=== PATIENT | female | born 1990 | race American Indian/Alaskan Native ===

== ENCOUNTER 2017-05-16 17:57 | Emergency (ER) | payer SELFPAY ==
[2017-05-16 18:55] VITALS: BP 126/98
[2017-05-16] MEDS ORDERED: methylPREDNISolone Sodium Succinate 125 MG/2 ML SDV IM ONE (18:55)
--- NOTE | 2017-05-16 18:59 | EDM.PDOC ---
[id number]: RASH,ALLERGIC, [id number] Time Seen by Provider: 05/16/17 18:55 Source of Information: Reports: Patient History Limitations: Reports: No Limitations - History of Present Illness INITIAL COMMENTS - FREE TEXT/NARRATIVE: 2 days h/o itchy rash taken nothing and not getting better. not sure if it's detergents of what. - Related Data Allergies Allergy/AdvReac Type Severity Reaction Status Date / Time No Known Allergies Allergy Verified 05/16/17 18:55 Home Meds: Home Meds Acetaminophen/oxyCODONE [Percocet 325-5 MG] 1 - 2 tab PO Q6H PRN #20 tablet 08/18 [Rx] Past Medical History - Past Health History Medical/Surgical History: Denies Medical/Surgical History [employer] History: Reports: Endocrine/Metabolic History: Reports: Other (See Below) Other Endocrine/Metabolic History: had an abnormal TSH with previous in 2013 is not on anything for it at this time - Infectious Disease History Infectious Disease History: Reports: Hepatitis C - Past Surgical History Female Surgical History: Reports: Section Social & Family History - Family History Family Medical History: Noncontributory - Tobacco Use Smoking Status *Q: Current Every Day Smoker Years of Tobacco use: 3 Packs/Tins Daily: 1 Used Tobacco, but Quit: No Second Hand Smoke Exposure: Yes - Caffeine Use Caffeine Use: Reports: Coffee, Soda, Tea - Alcohol Use Days Per Week of Alcohol Use: 0 - Recreational Drug Use Recreational Drug Use: No Drug Use in Last 12 Months: Yes Recreational Drug Type: Reports: Oxycodone ED ROS ALLERGIC REACTION - Review of Systems Review Of Systems: ROS reveals no pertinent complaints other than HPI. ED EXAM GENERAL NO PERIP PULSE - Physical Exam Exam: See Below Exam Limited By: No Limitations General Appearance: Alert, WD/WN, Mild Distress, Other (general itch) Ears: Hearing Grossly Normal Throat/Mouth: Normal Voice, No Airway Compromise Head: Atraumatic Neck: Non-Tender, Full Range of Motion Respiratory/Chest: No Respiratory Distress, No Accessory Muscle Use Cardiovascular: Regular Rate, Rhythm GI/Abdominal: Soft, Non-Tender Neurological: Alert, Oriented, Normal Cognition, Normal Gait, No Motor/Sensory Deficits Psychiatric: Normal Affect, Normal Mood Skin Exam: Rash, Other Lymphatic: No Adenopathy Course - Vital Signs Last Recorded V/S: Last Vital Signs Temp 37.0 C 05/16/17 18:45 Pulse 90 05/16/17 18:45 Resp 17 05/16/17 18:45 BP 126/98 H 05/16/17 18:45 Pulse Ox 100 05/16/17 18:45 - Orders/Labs/Meds Meds: Medications Discontinued Medications Generic Name Dose Route Start Last Admin Trade Name Gideon PRN Reason Stop Dose Admin Methylprednisolone Sodium Succinate 125 mg 05/16/17 18:55 05/16/17 19:02 Solu-Medrol IM 05/16/17 18:56 125 mg ONETIME ONE Administration Departure - Departure Time of Disposition: 19:10 Disposition: Home, Self-Care 01 Condition: Good Clinical Impression: Rash and nonspecific skin eruption - Discharge Information Instructions: Rash, Wasl-cy-Gdue Forms: ED Department Discharge Additional Instructions: 1) don't scratch 2) take 2 BENADRYL 25MG 2 to 3 times daily for itchy rash 3) recheck as needed rx given; medrol dospak
== END 2017-05-16 19:12 | disposition home or self-care (01) ==
LOC: DL.ED 17:57
DX: R21 Rash and other nonspecific skin eruption (principal); F17.210 Nicotine dependence, cigarettes, uncomplicated
CPT/HCPCS: 99283; J2930

== ENCOUNTER 2020-05-05 06:58 | Emergency (ER) | payer MEDICAID ==
[2020-05-05 07:12] VITALS: BP 146/98; PULSE 87
[2020-05-05] MEDS ORDERED: Ondansetron 4 MG/2 ML SDV IV ONE (07:19)
[2020-05-05] MEDS ORDERED: Sodium Chloride 0.9% 1,000 ML IV ONE (07:19)
[2020-05-05] MEDS ORDERED: Sodium Chloride 0.9% 10 ML Syringe FLUSH PRN (07:20)
--- NOTE | 2020-05-05 07:23 | EDM.PDOC ---
"ED HPI GENERAL MEDICAL PROBLEM - General Chief Complaint: Abdominal Pain Stated Complaint: STOMACH PAIN GOES INTO BACK Time Seen by Provider: 05/05/20 07:00 Source of Information: Reports: Patient, Old Records, RN, RN Notes Reviewed History Limitations: Reports: No Limitations - History of Present Illness INITIAL COMMENTS - FREE TEXT/NARRATIVE: Pt presents to ER with c/o sudden onset of upper abdominal pain at 0430HRS this morning. She last ate [employer] about 1900HRS last night. She denies . The pain is described as an intense ache and pressure that radiates into the right upper back. Admits to nausea and vomiting. Denies fever, chills, diarrhea, cough, chest pain, shortness of breath, or any known COVID exposures. Onset: Today Onset Time: 04:30 Duration: Constant Location: Reports: Abdomen, Radiates to (Rt upper back) Quality: Reports: Ache Severity: Severe Improves with: Reports: None Worsens with: Reports: Eating Associated Symptoms: Reports: No Other Symptoms Bilateral Upper Abdomen Pain Score (Numeric/FACES): 8 - Related Data Allergies Allergy/AdvReac Type Severity Reaction Status Date / Time No Known Allergies Allergy Verified 05/05/20 07:14 Home Meds: Home Meds . 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: Endocrine/Metabolic History: Reports: Obesity/BMI 30+, Other (See Below) Other Endocrine/Metabolic History: had an abnormal TSH with previous in 2013 is not on anything for it at this time - Infectious Disease History Infectious Disease History: Reports: Hepatitis C - Past Surgical History Female Surgical History: Reports: Section Social & Family History - Family History Family Medical History: Noncontributory - Tobacco Use Smoking Status *Q: Current Every Day Smoker Years of Tobacco use: 3 Packs/Tins Daily: 0.5 - Caffeine Use Caffeine Use: Reports: Coffee, Soda, Tea - Recreational Drug Use Recreational Drug Use: No - Living Situation & Occupation Living situation: Reports: with Family ED ROS GENERAL - Review of Systems Review Of Systems: Comprehensive ROS is negative, except as noted in HPI. ED EXAM, GI/ABD - Physical Exam Exam: See Below Exam Limited By: No Limitations General Appearance: Alert, No Apparent Distress, Obese, Other (Uncomfortable but non-toxic appearing) Eyes: Bilateral: Normal Appearance (No scleral icterus) Nose: Normal Inspection Throat/Mouth: Normal Inspection Head: Atraumatic, Normocephalic Neck: Normal Inspection Respiratory/Chest: No Respiratory Distress, Lungs Clear, Normal Breath Sounds, No Accessory Muscle Use, Chest Non-Tender Cardiovascular: Regular Rate, Rhythm, No Edema GI/Abdominal Exam: Normal Bowel Sounds, Soft, No Organomegaly, No Distention, No Abnormal Bruit, No Mass, Pelvis Stable, Tender (Tender at RUQ, mild tender at epigastric region) Back Exam: Normal Inspection. No: CVA Tenderness (L), CVA Tenderness (R) Extremities: Normal Inspection Neurological: Alert, Oriented, No Motor/Sensory Deficits Psychiatric: Normal Mood Course - Vital Signs Last Recorded V/S: Last Vital Signs Temp 97.3 F 05/05/20 07:10 Pulse 87 05/05/20 07:10 Resp 16 05/05/20 07:10 BP 146/98 H 05/05/20 07:10 Pulse Ox 100 05/05/20 07:10 - Orders/Labs/Meds Orders: Active Orders 24 hr Category Date Time Status Peripheral IV Care [RC] . DIRECTED Care 05/05/20 07:21 Active HCG QUALITATIVE,URINE [URCHEM] Stat Lab 05/05/20 07:20 Ordered UA RFX NESTOR AND CULT IF INDIC [URIN] Stat Lab 05/05/20 07:21 Ordered Sodium Chloride 0.9% [Saline Flush] Med 05/05/20 07:20 Active 10 ml FLUSH ASDIRECTED PRN Peripheral IV Insertion Adult [OM.PC] Stat Oth 05/05/20 07:20 Ordered Medication Orders Sodium Chloride (Saline Flush) 10 ml FLUSH ASDIRECTED PRN PRN Reason: Keep Vein Open Last Admin: 05/05/20 07:27 Dose: 10 ml Documented by: MARY Labs: Laboratory Tests 05/05/20 05/05/20 Range/Units 07:23 07:23 WBC 8.6 (5.0-10.0) 10^3/uL RBC 5.38 (4.2-5.4) 10^6/uL Hgb 13.9 D (12.0-16.0) g/dL Hct 43.4 (37.0-47.0) % MCV 80.7 D (80-100) fL MCH 25.8 L (27.0-34.0) pg MCHC 32.0 L (33.0-35.0) g/dL Plt Count 373 D (150-450) 10^3/uL Neut % (Auto) 65.3 (42.2-75.2) % Lymph % (Auto) 21.4 (20.5-50.1) % R[place] % (Auto) 9.5 H (2-8) % Eos % (Auto) 3.5 H (1.0-3.0) % Baso % (Auto) 0.3 (0.0-1.0) % Sodium 137 (136-145) mmol/L Potassium 3.8 (3.5-5.1) mmol/L Chloride 100 (98-107) mmol/L Carbon Dioxide 31 (21-32) mmol/L Anion Gap 9.8 (7-13) mEq/L BUN 7 (7-18) mg/dL Creatinine 0.68 (0.55-1.02) mg/dL Est Cr Clr Drug Dosing 97.42 mL/min Estimated GFR (MDRD) > 60 BUN/Creatinine Ratio 10.3 (No establ ref range) Glucose 112 H (74-99) mg/dL Calcium 8.5 (8.5-10.1) mg/dL Total Bilirubin 0.4 (0.2-1.0) mg/dL AST 66 H (15-37) U/L ALT 90 H (14-59) U/L Alkaline Phosphatase 128 H (46-116) U/L Total Protein 7.9 (6.4-8.2) g/dL Albumin 3.5 (3.4-5.0) g/dL Globulin 4.4 Albumin/Globulin Ratio 0.8 Amylase 40 (25-115) U/L Lipase 116 (73-393) U/L Meds: Medications Generic Name Dose Route Start Last Admin Trade Name Freq PRN Reason Stop Dose Admin Sodium Chloride 10 ml 05/05/20 07:20 08 07:27 Saline Flush FLUSH 10 ml ASDIRECTED PRN Administration Keep Vein Open Discontinued Medications Generic Name Dose Route Start Last Admin Trade Name Freq PRN Reason Stop Dose Admin Hydromorphone HCl 1 mg 05/05/20 07:54 08/03/20 08:00 Dilaudid IVPUSH 05/05/20 07:55 1 mg ONETIME ONE Administration Sodium Chloride 1,000 mls @ 999 mls/hr 05/05/20 07:19 05/05/20 07:27 Normal Saline IV 05/05/20 08:19 999 mls/hr .BOLUS ONE Administration Ondansetron HCl 4 mg 05/05/20 07:19 05/05/20 07:27 Zofran IV 05/05/20 07:20 4 mg ONETIME ONE Administration - Radiology Interpretation Free Text/Narrative:: [facility] [place] [facility] Final Radiology Report Call: [phone] assistance Online chat: [email or web address] Name: MARCUS BLAS Age: 30Years F Date: 05/05/2020 SSN: -- : [id number] Study: US ABDOMEN LTD Requesting Physician: JACE GURROLA Images: 56 Addl Studies: Provided Clinical History: RUQ abdominal pain, ATTN: gallbladder Contrast: Without Contrast Medium: Contrast Amount: Contrast Method: Page 1 of 2 PROCEDURE INFORMATION: Exam: US Abdomen, Limited; Right Upper Quadrant Exam date and time: 05/05/2020 8:27 AM Age: 30 years old Clinical indication: Abdominal pain; Acute; Additional info: Ruq abdominal pain, attn: Gallbladder TECHNIQUE: Imaging protocol: US abdomen. Real time ultrasound with image documentation. Limited exam focused on the right upper quadrant. COMPARISON: No relevant prior exams. FINDINGS: Liver: The liver is diffusely increased in echogenicity throughout. No focal lesions within the liver. Gallbladder: There is sludge and small stones in the lumen of the gallbladder. No inflammatory changes to the gallbladder. Common bile duct: The common bile duct is mildly dilated, measuring 8 mm. No intraductal stones. No other obstructing lesions. Pancreas: Visualized pancreas is unremarkable. Right kidney: Prominent column of [place]ing[place]. Otherwise, unremarkable. No hydronephrosis. IMPRESSION: 1. Fatty infiltration of the liver. 2. Stones and sludge in the gallbladder without evidence of cholecystitis. 3. Mildly dilated common bile duct with no intraductal stones or other obstructing lesions. This may represent the sequela of a recently passed stone. If clinical concern remains, further evaluation with MR cholangiography is recommended. Thank you for allowing us to participate in the care of your patient. MARCUS BLAS | Final Radiology Report CONFIDENTIALITY STATEMENT This report is intended only for use by the referring physician, and only in accordance with law. If you received this in error, call [phone]. Page 2 of 2 Dictated and Authenticated by: Grant Lomax MD 05/05/2020 9:04 AM Central Time ([place] & [place]) - Re-Assessments/Exams Free Text/Narrative Re-Assessment/Exam: 05/05/20 09:[address] Erazo by phone, and he agrees to f/u in clinic with the pt tomorrow at 0915hrs for recheck and referral to a surgeon for gallbladder evaluation. Departure - Departure Time of Disposition: 09:49 Disposition: Home, Self-Care 01 Condition: Good Clinical Impression: Biliary colic, Fatty liver Cholelithiases Qualifiers: Cholelithiasis location: gallbladder Cholecystitis presence: without cholecystitis Biliary obstruction: without biliary obstruction Qualified Code(s): K80.20 - Calculus of gallbladder without cholecystitis without obstruction - Discharge Information *PRESCRIPTION DRUG MONITORING PROGRAM REVIEWED*: Not Applicable *COPY OF PRESCRIPTION DRUG MONITORING REPORT IN PATIENT ELO: Not Applicable Instructions: Cholelithiasis, Zrjs-[id number], Biliary Colic, Adult, Fatty Liver Disease Forms: ED Department Discharge Additional Instructions: Rx: Zofran 4mg Very low fat diet. Follow in clinic tomorrow with Dr. Erazo at 9:15AM, May 05, 2020 for recheck and referral to a surgeon for gallbladder evaluation and treatment. Return to ER if worse at any time. Sepsis Event Note (ED) - Evaluation Sepsis Screening Result: No Definite Risk - Focused Exam Vital Signs: Vital Signs Temp Pulse Resp BP Pulse Ox 05/05/20 07:10 97.3 F 87 16 146/98 H 100 - My Orders Last 24 Hours: My Active Orders 05/05/20 07:20 HCG QUALITATIVE,URINE [URCHEM] Stat Sodium Chloride 0.9% [Saline Flush] 10 ml FLUSH ASDIRECTED PRN Peripheral IV Insertion Adult [OM.PC] Stat 05/05/20 07:21 Peripheral IV Care [RC] . DIRECTED UA RFX NESTOR AND CULT IF INDIC [URIN] Stat - Assessment/Plan Last 24 Hours: My Active Orders 05/05/20 07:20 HCG QUALITATIVE,URINE [URCHEM] Stat Sodium Chloride 0.9% [Saline Flush] 10 ml FLUSH ASDIRECTED PRN Peripheral IV Insertion Adult [OM.PC] Stat 05/05/20 07:21 Peripheral IV Care [RC] . DIRECTED UA RFX NESTOR AND CULT IF INDIC [URIN] Stat"
[2020-05-05 07:49] LABS: ANION GAP 9.8 mEq/L (7-13); CHLORIDE,CL 100 mmol/L (98-107); SODIUM,NA 137 mmol/L (136-145)
[2020-05-05] MEDS ORDERED: HYDROmorphone 1 MG/ML Syringe IVPUSH ONE (07:54)
--- NOTE | 2020-05-05 09:04 | US ---
PROCEDURE INFORMATION: Exam: US Abdomen, Limited; Right Upper Quadrant Exam date and time: 05/05/2020 8:27 AM Age: 30 years old Clinical indication: Abdominal pain; Acute; Additional info: Ruq abdominal pain, attn: Gallbladder TECHNIQUE: Imaging protocol: US abdomen. Real time ultrasound with image documentation. Limited exam focused on the right upper quadrant. COMPARISON: No relevant prior exams. FINDINGS: Liver: The liver is diffusely increased in echogenicity throughout. No focal lesions within the liver. Gallbladder: There is sludge and small stones in the lumen of the gallbladder. No inflammatory changes to the gallbladder. Common bile duct: The common bile duct is mildly dilated, measuring 8 mm. No intraductal stones. No other obstructing lesions. Pancreas: Visualized pancreas is unremarkable. Right kidney: Prominent column of Dominguez. Otherwise, unremarkable. No hydronephrosis. IMPRESSION: 1. Fatty infiltration of the liver. 2. Stones and sludge in the gallbladder without evidence of cholecystitis. 3. Mildly dilated common bile duct with no intraductal stones or other obstructing lesions. This may represent the sequela of a recently passed stone. If clinical concern remains, further evaluation with MR cholangiography is recommended.
== END 2020-05-05 10:05 | disposition home or self-care (01) ==
LOC: DL.ED 06:58
DX: K80.70 Calculus of gallbladder and bile duct without cholecystitis without obstruction (principal); K76.0 Fatty (change of) liver, not elsewhere classified; E66.9 Obesity, unspecified; F17.210 Nicotine dependence, cigarettes, uncomplicated; Z68.31 Body mass index [BMI] 31.0-31.9, adult
CPT/HCPCS: 36415; 76705; 80053; 82150; 83690; 85025; 96361; 96374; 96375; 99284; J1170; J2405; J7030

== ENCOUNTER 2020-05-07 07:16 | Emergency (ER) | payer MEDICAID ==
[2020-05-07 07:26] VITALS: BP 90/64; PULSE 84
[2020-05-07 08:01] LABS: ANION GAP 12.9 mEq/L (7-13); CHLORIDE,CL 101 mmol/L (98-107); SODIUM,NA 138 mmol/L (136-145)
[2020-05-07] MEDS ORDERED: HYDROmorphone 1 MG/ML Syringe IM ONE (08:06)
[2020-05-07] MEDS ORDERED: Ondansetron 4 MG Tab.DIS PO ONE (08:06)
--- NOTE | 2020-05-07 08:13 | EDM.PDOC ---
<Megan Stewart R - Last Filed: 05/07/20 08:23> ED HPI GENERAL MEDICAL PROBLEM - General Chief Complaint: Abdominal Pain Stated Complaint: STOMACH AND BACK PAIN Time Seen by Provider: 05/07/20 08:00 Source of Information: Reports: Patient, RN, RN Notes Reviewed History Limitations: Reports: No Limitations - History of Present Illness INITIAL COMMENTS - FREE TEXT/NARRATIVE: Patient is a 30 year old female who presents with right upper quadrant abdominal pain that started at 6:30 this morning. states the pain is about 8/10, constant, sharp shooting pain that radiates to her back. she denies fever, chills, nausea, vomitnig, blood in stools, diarrhea, constipation. she was seen in the ED 2 days ago for similar symptoms. work up including CBC, CMP and US of RUQ abdomen were done which showed elevated LFTs. Normal WBC and total bilirubin. Gallbladder US showed multiple non-obstructing stones. patient is scheduled for an elective cholecystectomy today at 2:30 PM at [facility]. Onset: Today Onset Date: 05/07/20 Onset Time: 06:30 Duration: Constant Location: Reports: Abdomen (RUQ), Radiates to (back) Quality: Reports: Sharp, Stabbing Severity: Moderate Improves with: Reports: None Worsens with: Reports: None Associated Symptoms: Reports: Loss of Appetite Right Upper Abdomen Pain Score (Numeric/FACES): 8 - Related Data Allergies Allergy/AdvReac Type Severity Reaction Status Date / Time No Known Allergies Allergy Verified 05/07/20 07:26 Home Meds: Home Meds . 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: Reports: Obesity/BMI 30+, Other (See Below) Other Endocrine/Metabolic History: had an abnormal TSH with previous in 2013 is not on anything for it at this time - Infectious Disease History Infectious Disease History: Reports: Hepatitis C - Past Surgical History Female Surgical History: Reports: Section Social & Family History - Family History Family Medical History: Noncontributory - Tobacco Use Smoking Status *Q: Current Every Day Smoker Years of Tobacco use: 3 Packs/Tins Daily: 0.1 - Caffeine Use Caffeine Use: Reports: None - Recreational Drug Use Recreational Drug Use: No - Living Situation & Occupation Living situation: Reports: with Family ED ROS GENERAL - Review of Systems Review Of Systems: Comprehensive ROS is negative, except as noted in HPI. Constitutional: Reports: Decreased Appetite GI/Abdominal: Reports: Abdominal Pain, Decreased Appetite, Nausea ED EXAM, GI/ABD - Physical Exam Exam: See Below General Appearance: Mild Distress GI/Abdominal Exam: Normal Bowel Sounds, Soft, No Organomegaly, No Distention, Tender (RUQ). No: Distended, Guarding, Rigid, Rebound Rectal (Female) Exam: Deferred Psychiatric: Tearful Departure - Departure Time of Disposition: 08:21 Disposition: Home, Self-Care 01 Condition: Good Clinical Impression: Biliary colic - Discharge Information *PRESCRIPTION DRUG MONITORING PROGRAM REVIEWED*: Not Applicable *COPY OF PRESCRIPTION DRUG MONITORING REPORT IN PATIENT ELO: Not Applicable Instructions: Biliary Colic, Adult Forms: ED Department Discharge Additional Instructions: Follow up for surgery as scheduled. Sepsis Event Note (ED) - Evaluation Sepsis Screening Result: No Definite Risk <Dustin Thomas - Last Filed: 05/07/20 08:24> Course - Vital Signs Last Recorded V/S: Last Vital Signs Temp 97.4 F 05/07/20 07:23 Pulse 84 05/07/20 07:23 Resp 18 05/07/20 07:23 BP 90/64 05/07/20 07:23 Pulse Ox 100 05/07/20 07:23 - Orders/Labs/Meds Labs: Laboratory Tests 05/07/20 05/07/20 Range/Units 07:35 07:35 WBC 9.1 (5.0-10.0) 10^3/uL RBC 5.20 (4.2-5.4) 10^6/uL Hgb 13.3 (12.0-16.0) g/dL Hct 42.4 (37.0-47.0) % MCV 81.5 (80-100) fL MCH 25.6 L (27.0-34.0) pg MCHC 31.4 L (33.0-35.0) g/dL Plt Count 351 (150-450) 10^3/uL Neut % (Auto) 63.1 (42.2-75.2) % Lymph % (Auto) 23.4 (20.5-50.1) % Keith % (Auto) 9.4 H (2-8) % Eos % (Auto) 3.8 H (1.0-3.0) % Baso % (Auto) 0.3 (0.0-1.0) % Sodium 138 (136-145) mmol/L Potassium 3.9 (3.5-5.1) mmol/L Chloride 101 (98-107) mmol/L Carbon Dioxide 28 (21-32) mmol/L Anion Gap 12.9 (7-13) mEq/L BUN 10 (7-18) mg/dL Creatinine 0.69 (0.55-1.02) mg/dL Est Cr Clr Drug Dosing 96.00 mL/min Estimated GFR (MDRD) > 60 BUN/Creatinine Ratio 14.5 (No establ ref range) Glucose 105 H (74-99) mg/dL Calcium 8.4 L (8.5-10.1) mg/dL Total Bilirubin 0.5 (0.2-1.0) mg/dL AST 66 H (15-37) U/L ALT 84 H (14-59) U/L Alkaline Phosphatase 128 H (46-116) U/L Total Protein 7.8 (6.4-8.2) g/dL Albumin 3.4 (3.4-5.0) g/dL Globulin 4.4 Albumin/Globulin Ratio 0.8 Amylase 38 (25-115) U/L Lipase 135 (73-393) U/L Meds: Medications Discontinued Medications Generic Name Dose Route Start Last Admin Trade Name Freq PRN Reason Stop Dose Admin Hydromorphone HCl 1 mg 05/07/20 08:06 05/07/20 08:12 Dilaudid IM 05/07/20 08:07 1 mg ONETIME ONE Administration Ondansetron HCl 4 mg 05/07/20 08:06 05/07/20 08:11 Zofran Odt PO 05/07/20 08:07 4 mg ONETIME ONE Administration - Re-Assessments/Exams Free Text/Narrative Re-Assessment/Exam: 05/07/20 08:24 I saw and evaluated the patient. Discussed with resident and agree with residents findings and plan as documented in the residents note. Sepsis Event Note (ED) - Focused Exam Vital Signs: Vital Signs Temp Pulse Resp BP Pulse Ox 05/07/20 07:23 97.4 F 84 18 90/64 100
== END 2020-05-07 08:28 | disposition home or self-care (01) ==
LOC: DL.ED 07:16
DX: K80.50 Calculus of bile duct without cholangitis or cholecystitis without obstruction (principal); F17.210 Nicotine dependence, cigarettes, uncomplicated; E66.9 Obesity, unspecified; Z68.31 Body mass index [BMI] 31.0-31.9, adult
CPT/HCPCS: 36415; 80053; 82150; 83690; 85025; 96372; 99284; A9270; J1170

== ENCOUNTER 2020-05-12 01:19 | Observation (INO) | payer MEDICAID ==
[2020-05-12] MEDS ORDERED: Sodium Chloride 0.9% 1,000 ML IV ONE (01:23)
[2020-05-12] MEDS ORDERED: Ondansetron 4 MG/2 ML SDV IVPUSH ONE (01:23)
[2020-05-12] MEDS ORDERED: HYDROmorphone 1 MG/ML Syringe IVPUSH ONE (01:23)
[2020-05-12] MEDS ORDERED: HYDROmorphone 0.5 MG/0.5 ML Syringe IVPUSH PRN (01:47)
[2020-05-12 01:53] LABS: ANION GAP 13.5 mEq/L (7-13); CHLORIDE,CL 102 mmol/L (98-107); SODIUM,NA 139 mmol/L (136-145)
[2020-05-12] MEDS ORDERED: Piperacillin/Tazobactam 3.375 GM in Sodium Chloride 0.9% 100 ML IV ONE (02:32)
--- NOTE | 2020-05-12 02:48 | EDM.PDOC ---
ED HPI GENERAL MEDICAL PROBLEM - General Chief Complaint: Abdominal Pain Stated Complaint: PAIN IN CHEST AND BACK Time Seen by Provider: 05/12/20 01:20 Source of Information: Reports: Patient History Limitations: Reports: No Limitations - History of Present Illness INITIAL COMMENTS - FREE TEXT/NARRATIVE: Ed with RUQ pain radiating to back and shoulder blade, Known gallbaldder disease. GB surgery pending on .Had been only doing liquid diet until today and ate mac n cheese for supper and later salad with [place] dressing around 10pm. Emesis x 1, co/severe pain 07/12 no fever. Denies possible covid exposure. Denies . not on current control. No urinary sx. No cough. 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: Endocrine/Metabolic History: Reports: Obesity/BMI 30+, Other (See Below) Other Endocrine/Metabolic History: had an abnormal TSH with previous in 2013 is not on anything for it at this time - Infectious Disease History Infectious Disease History: Reports: Hepatitis C - Past Surgical History Female Surgical History: Reports: Section Social & Family History - Family History Family Medical History: Noncontributory - Tobacco Use Smoking Status *Q: Current Every Day Smoker Years of Tobacco use: 3 Packs/Tins Daily: 0.1 Second Hand Smoke Exposure: Yes - Caffeine Use Caffeine Use: Reports: None - Recreational Drug Use Recreational Drug Use: No - Living Situation & Occupation Living situation: Reports: with Family ED ROS GENERAL - Review of Systems Review Of Systems: Comprehensive ROS is negative, except as noted in HPI. ED EXAM, GI/ABD - Physical Exam Exam: See Below Exam Limited By: No Limitations General Appearance: Alert, Moderate Distress (restless, rocking), Obese Ears: Normal External Exam, Normal TMs Nose: Normal Inspection Throat/Mouth: Normal Inspection Head: Atraumatic, Normocephalic Neck: Normal Inspection Respiratory/Chest: No Respiratory Distress, Lungs Clear, Normal Breath Sounds Cardiovascular: Normal Peripheral Pulses, Regular Rate, Rhythm GI/Abdominal Exam: Soft, Tender (RUQ), Abnormal Bowel Sounds (decreased). No: Distended Back Exam: No: Paraspinal Tenderness Neurological: Alert, Oriented, Normal Cognition, Normal Gait Psychiatric: Normal Affect, Normal Mood Skin Exam: Warm, Dry, Intact, Normal Color. No: Jaundice Course - Vital Signs Last Recorded V/S: Last Vital Signs Temp 97.5 F 05/12/20 01:21 Pulse 122 H 05/12/20 01:21 Resp 24 H 05/12/20 01:21 BP 136/93 H 05/12/20 01:21 Pulse Ox 98 05/12/20 01:21 - Orders/Labs/Meds Orders: Active Orders 24 hr Category Date Time Status Admission Diagnosis [ADT] Stat ADT 05/12/20 02:32 Ordered Admission Status [Patient Status] [ADT] Routine ADT 05/12/20 02:32 Ordered CORONAVIRUS COVID-19 RAPID [MOLEC] Stat Lab 05/12/20 01:43 Ordered HYDROmorphone [Dilaudid] Med 05/12/20 01:47 Active 0.5 mg IVPUSH ONETIME PRN Piperacillin/Tazobactam [Zosyn] 3.375 gm Med 05/12/20 02:32 Ordered Sodium Chloride 0.9% [Normal Saline] 100 ml IV ONETIME Medication Orders Hydromorphone HCl (Dilaudid) 0.5 mg IVPUSH ONETIME PRN PRN Reason: Pain (moderate 4-6) Last Admin: 05/12/20 02:00 Dose: 0.5 mg Documented by: JULIO Piperacillin Sod/Tazobactam (Sod 3.375 gm/ Sodium Chloride) 100 mls @ 200 mls/hr IV ONETIME ONE Stop: 05/12/20 03:01 Labs: Laboratory Tests 05/12/20 05/12/20 05/12/20 Range/Units 01:30 01:30 01:30 WBC 9.7 (5.0-10.0) 10^3/uL RBC 5.25 (4.2-5.4) 10^6/uL Hgb 13.4 (12.0-16.0) g/dL Hct 41.9 (37.0-47.0) % MCV 79.8 L (80-100) fL MCH 25.5 L (27.0-34.0) pg MCHC 32.0 L (33.0-35.0) g/dL Plt Count 349 (150-450) 10^3/uL Neut % (Auto) 64.2 (42.2-75.2) % Lymph % (Auto) 23.1 (20.5-50.1) % [place] % (Auto) 8.7 H (2-8) % Eos % (Auto) 3.7 H (1.0-3.0) % Baso % (Auto) 0.3 (0.0-1.0) % Sodium 139 (136-145) mmol/L Potassium 3.5 (3.5-5.1) mmol/L Chloride 102 (98-107) mmol/L Carbon Dioxide 27 (21-32) mmol/L Anion Gap 13.5 H (7-13) mEq/L BUN 7 (7-18) mg/dL Creatinine 0.73 (0.55-1.02) mg/dL Est Cr Clr Drug Dosing 90.74 mL/min Estimated GFR (MDRD) > 60 BUN/Creatinine Ratio 9.6 (No establ ref range) Glucose 103 H (74-99) mg/dL Lactic Acid 1.2 (0.4-2.0) mmol/L Calcium 8.6 (8.5-10.1) mg/dL Total Bilirubin 0.3 (0.2-1.0) mg/dL AST 73 H (15-37) U/L ALT 101 H (14-59) U/L Alkaline Phosphatase 122 H (46-116) U/L Total Protein 8.5 H (6.4-8.2) g/dL Albumin 3.9 (3.4-5.0) g/dL Globulin 4.6 Albumin/Globulin Ratio 0.8 Amylase 43 (25-115) U/L Lipase 150 (73-393) U/L HCG, Qual Negative Meds: Medications Generic Name Dose Route Start Last Admin Trade Name Freq PRN Reason Stop Dose Admin Hydromorphone HCl 0.5 mg 05/12/20 01:47 05/12/20 02:00 Dilaudid IVPUSH 0.5 mg ONETIME PRN Administration Pain (moderate 4-6) Piperacillin Sod/Tazobactam 100 mls @ 200 mls/hr 05/12/20 02:32 Sod 3.375 gm/ Sodium Chloride IV 05/12/20 03:01 ONETIME ONE Discontinued Medications Generic Name Dose Route Start Last Admin Trade Name Freq PRN Reason Stop Dose Admin Hydromorphone HCl 1 mg 05/12/20 01:23 05/12/20 01:35 Dilaudid IVPUSH 05/12/20 01:24 1 mg ONETIME ONE Administration Sodium Chloride 1,000 mls @ 999 mls/hr 05/12/20 01:23 05/12/20 01:33 Normal Saline IV 05/12/20 02:23 999 mls/hr .BOLUS ONE Administration Ondansetron HCl 4 mg 05/12/20 01:23 05/12/20 01:33 Zofran IVPUSH 05/12/20 01:24 4 mg ONETIME ONE Administration - Re-Assessments/Exams Free Text/Narrative Re-Assessment/Exam: 05/12/20 02:51 Dr Nunez accepting for observation. Plan to consult Dr Heller in am. COVID testing pending , asymptomatic but will need preprocedure. 05/12/20 02:52 Pain improved to 3/10 Departure - Departure Time of Disposition: 02:49 Disposition: Refer to Observation Condition: Good Clinical Impression: Cholecystitis, Biliary colic - Discharge Information *PRESCRIPTION DRUG MONITORING PROGRAM REVIEWED*: No *COPY OF PRESCRIPTION DRUG MONITORING REPORT IN PATIENT ELO: No Sepsis Event Note (ED) - Evaluation Sepsis Screening Result: No Definite Risk - Focused Exam Vital Signs: Vital Signs Temp Pulse Resp BP Pulse Ox 05/12/20 01:21 97.5 F 122 H 24 H 136/93 H 98 - My Orders Last 24 Hours: My Active Orders 05/12/20 01:43 CORONAVIRUS COVID-19 RAPID [MOLEC] Stat 05/12/20 01:47 HYDROmorphone [Dilaudid] 0.5 mg IVPUSH ONETIME PRN 05/12/20 02:32 Admission Diagnosis [ADT] Stat Admission Status [Patient Status] [ADT] Routine Piperacillin/Tazobactam [Zosyn] 3.375 gm Sodium Chloride 0.9% [Normal Saline] 100 ml IV ONETIME - Assessment/Plan Last 24 Hours: My Active Orders 05/12/20 01:43 CORONAVIRUS COVID-19 RAPID [MOLEC] Stat 05/12/20 01:47 HYDROmorphone [Dilaudid] 0.5 mg IVPUSH ONETIME PRN 05/12/20 02:32 Admission Diagnosis [ADT] Stat Admission Status [Patient Status] [ADT] Routine Piperacillin/Tazobactam [Zosyn] 3.375 gm Sodium Chloride 0.9% [Normal Saline] 100 ml IV ONETIME
[2020-05-12] MEDS ORDERED: Acetaminophen 325 MG Tab PO PRN (02:52)
[2020-05-12] MEDS ORDERED: Ondansetron 4 MG/2 ML SDV IVPUSH PRN (02:52)
[2020-05-12] MEDS ORDERED: Docusate Sodium 100 MG Cap PO PRN (02:52)
[2020-05-12] MEDS: Sodium Chloride 0.9% 1,000 ML IV SCH ×2 (03:33→13:35)
--- NOTE | 2020-05-12 05:44 | HP ---
CHIEF COMPLAINT: Right upper quadrant abdominal pain. HISTORY OF PRESENT ILLNESS: The patient is a 30-year-old female, who was admitted through the emergency room because of right upper quadrant abdominal pain radiating to her back and shoulder blades. She known gallbladder disease, and gallbladder surgery pending on 05/22/[address] [facility] in [place] and she has only been doing some clear liquid diet until today and she ate some mac and cheese for supper, and at around 10 o'clock last night she had an emesis and complain of severe abdominal pain radiating to the back and to her shoulder blades. She denies any fever or chills. Denies any headache, chest pain, dysuria, shortness of breath, nor any other symptoms, and because of this, she was she presented to the ER and she was subsequently admitted for further evaluation and management. PAST MEDICAL HISTORY: Remarkable for hepatitis C and obesity. FAMILY HISTORY: Noncontributory. SOCIAL HISTORY: Lives with her family. Smokes about 1 to 2 cigarettes a day. Non-alcohol drinker, and no illicit drug use. HOME MEDICATIONS: Zofran and Pepcid. ALLERGIES: No known drug allergies. REVIEW OF SYSTEMS: As in HPI. The rest of the review of systems is negative. PHYSICAL EXAMINATION: General: The patient is alert and oriented, ambulatory, not in any acute distress. Vital Signs: Blood pressure is 136/93, pulse of 122, respirations 24, and temperature of 97.5. SHEENT: Normocephalic. There are pink palpebral conjunctivae. Sclerae are anicteric. Neck: No JVD. No lymphadenopathy. Heart: Regular rate and rhythm. Normal S1 and S2. No gallops. No rubs. Lungs: Clear. No crackles. No wheezing. Abdomen: Soft. There is mild direct tenderness on the left and on the right upper quadrant. No rebound. Bowels pulse sounds are positive. EXTREMITIES: Negative for any pedal edema. No calf tenderness. LABORATORY DATA: Lab workup: CBC: WBC 9.7, hemoglobin is 13.4, hematocrit 41.9, and platelet is 349. Comp panel: Sodium is 139, potassium is 3.5, chloride of 102, carbon dioxide of 27, anion gap of 13.5, BUN is 7, creatinine is 0.73, and glucose is 103. Lactic acid is 1.2. COVID is negative. HCG is negative. ADMITTING DIAGNOSIS: Acute cholecystitis. The patient is going to be admitted to General Medicine floor for observation and Dr. Heller is going to be consulted for possible cholecystectomy. In the meantime, she will be kept n.p.o. and IV fluids. She was given Zosyn while in the emergency room, and the rest of the management as necessary. The patient is a full code. [facility] /[id number]
[2020-05-12] MEDS: Famotidine 20 MG Tab PO SCH ×2 (08:14→21:36)
[2020-05-12] MEDS: Acetaminophen/oxyCODONE 325-5 MG Tab PO PRN ×4 (08:14→21:36)
--- NOTE | 2020-05-12 09:54 | PCM.PN ---
- General Info Date of Service: 05/12/20 Subjective Update: history of cholelithiasis as seen on ultrasound a week ago. After eating mac & cheese developed the severe right upper quadrant abdominal pain radiating to the right flank area. As admitted. Overnight was nothing by mouth. Pain resolved. No associated fever. Nausea resolved No chest pain, no shortness of breath, no leg swelling lately. - Patient Data Vitals - Most Recent: Last Vital Signs Temp 97.9 F 05/12/20 08:13 Pulse 61 05/12/20 08:13 Resp 18 05/12/20 08:13 BP 115/72 05/12/20 08:13 Pulse Ox 100 05/12/20 08:13 Weight - Most Recent: 170 lb I&O - Last 24 Hours: Intake & Output 05/11/20 05/12/20 05/12/20 22:59 06:59 14:59 Intake Total 100 Balance 100 Lab Results Last 24 Hours: Laboratory Results - last 24 hr 05/12/20 05/12/20 05/12/20 Range/Units 01:30 01:30 01:30 WBC 9.7 (5.0-10.0) 10^3/uL RBC 5.25 (4.2-5.4) 10^6/uL Hgb 13.4 (12.0-16.0) g/dL Hct 41.9 (37.0-47.0) % MCV 79.8 L (80-100) fL MCH 25.5 L (27.0-34.0) pg MCHC 32.0 L (33.0-35.0) g/dL Plt Count 349 (150-450) 10^3/uL Neut % (Auto) 64.2 (42.2-75.2) % Lymph % (Auto) 23.1 (20.5-50.1) % [place] % (Auto) 8.7 H (2-8) % Eos % (Auto) 3.7 H (1.0-3.0) % Baso % (Auto) 0.3 (0.0-1.0) % Sodium 139 (136-145) mmol/L Potassium 3.5 (3.5-5.1) mmol/L Chloride 102 (98-107) mmol/L Carbon Dioxide 27 (21-32) mmol/L Anion Gap 13.5 H (7-13) mEq/L BUN 7 (7-18) mg/dL Creatinine 0.73 (0.55-1.02) mg/dL Est Cr Clr Drug Dosing 90.74 mL/min Estimated GFR (MDRD) > 60 BUN/Creatinine Ratio 9.6 (No establ ref range) Glucose 103 H (74-99) mg/dL Lactic Acid 1.2 (0.4-2.0) mmol/L Calcium 8.6 (8.5-10.1) mg/dL Total Bilirubin 0.3 (0.2-1.0) mg/dL AST 73 H (15-37) U/L ALT 101 H (14-59) U/L Alkaline Phosphatase 122 H (46-116) U/L Total Protein 8.5 H (6.4-8.2) g/dL Albumin 3.9 (3.4-5.0) g/dL Globulin 4.6 Albumin/Globulin Ratio 0.8 Amylase 43 (25-115) U/L Lipase 150 (73-393) U/L HCG, Qual Negative COVID-19 ([facility]) (NEGATIVE) 05/12/20 Range/Units 02:40 WBC (5.0-10.0) 10^3/uL RBC (4.2-5.4) 10^6/uL Hgb (12.0-16.0) g/dL Hct (37.0-47.0) % MCV (80-100) fL MCH (27.0-34.0) pg MCHC (33.0-35.0) g/dL Plt Count (150-450) 10^3/uL Neut % (Auto) (42.2-75.2) % Lymph % (Auto) (20.5-50.1) % [place] % (Auto) (2-8) % Eos % (Auto) (1.0-3.0) % Baso % (Auto) (0.0-1.0) % Sodium (136-145) mmol/L Potassium (3.5-5.1) mmol/L Chloride (98-107) mmol/L Carbon Dioxide (21-32) mmol/L Anion Gap (7-13) mEq/L BUN (7-18) mg/dL Creatinine (0.55-1.02) mg/dL Est Cr Clr Drug Dosing mL/min Estimated GFR (MDRD) BUN/Creatinine Ratio (No establ ref range) Glucose (74-99) mg/dL Lactic Acid (0.4-2.0) mmol/L Calcium (8.5-10.1) mg/dL Total Bilirubin (0.2-1.0) mg/dL AST (15-37) U/L ALT (14-59) U/L Alkaline Phosphatase (46-116) U/L Total Protein (6.4-8.2) g/dL Albumin (3.4-5.0) g/dL Globulin Albumin/Globulin Ratio Amylase (25-115) U/L Lipase (73-393) U/L HCG, Qual COVID-19 ([facility]) Negative (NEGATIVE) Med Orders - Current: Current Medications Acetaminophen (Tylenol) 650 mg PO Q4H PRN PRN Reason: Pain (Mild 1-3)/fever Docusate Sodium (Colace) 100 mg PO BID PRN PRN Reason: Constipation Famotidine (Pepcid) 20 mg PO BID [facility] Last Admin: 05/12/20 08:14 Dose: 20 mg Documented by: Hydromorphone HCl (Dilaudid) 0.25 mg IVPUSH Q2H PRN PRN Reason: Pain (severe 7-10) Sodium Chloride (Normal Saline) 1,000 mls @ 125 mls/hr IV ASDIRECTED [facility] Last Admin: 05/12/20 03:33 Dose: 125 mls/hr Documented by: Ondansetron HCl (Zofran) 4 mg IVPUSH Q4H PRN PRN Reason: Nausea/Vomiting Oxycodone/Acetaminophen (Percocet 325-5 Mg) 1 tab PO Q4H PRN PRN Reason: Pain (moderate 4-6) Last Admin: 05/12/20 08:14 Dose: 1 tab Documented by: Discontinued Medications Hydromorphone HCl (Dilaudid) 1 mg IVPUSH ONETIME ONE Stop: 05/12/20 01:24 Last Admin: 05/12/20 01:35 Dose: 1 mg Documented by: Hydromorphone HCl (Dilaudid) 0.5 mg IVPUSH ONETIME PRN PRN Reason: Pain (moderate 4-6) Last Admin: 05/12/20 02:00 Dose: 0.5 mg Documented by: Sodium Chloride (Normal Saline) 1,000 mls @ 999 mls/hr IV .BOLUS ONE Stop: 05/12/20 02:23 Last Admin: 05/12/20 01:33 Dose: 999 mls/hr Documented by: Piperacillin Sod/Tazobactam (Sod 3.375 gm/ Sodium Chloride) 100 mls @ 200 mls/hr IV ONETIME ONE Stop: 05/12/20 03:01 Last Admin: 05/12/20 02:53 Dose: 200 mls/hr Documented by: Ondansetron HCl (Zofran) 4 mg IVPUSH ONETIME ONE Stop: 05/12/20 01:24 Last Admin: 05/12/20 01:33 Dose: 4 mg Documented by: - Exam Quality Assessment: No: Supplemental Oxygen General: Alert, Oriented Neck: Supple Lungs: Clear to Auscultation, Normal Respiratory Effort Cardiovascular: Regular Rate, Regular Rhythm GI/Abdominal Exam: Normal Bowel Sounds, Soft, Non-Tender Skin: Warm, Dry Neurological: No New Focal Deficit Sepsis Event Note - Evaluation Sepsis Screening Result: No Definite Risk - Focused Exam Vital Signs: Vital Signs Temp Pulse Resp BP BP Pulse Ox 05/12/20 08:13 97.9 F 61 18 115/72 100 05/12/20 02:52 98.6 F 66 16 124/54 L 98 05/12/20 01:21 97.5 F 122 H 24 H 136/93 H 98 Date Exam was Performed: 05/12/20 Time Exam was Performed: 09:55 - Problem List & Annotations (1) Biliary colic SNOMED Code(s): 83694165 Code(s): K80.50 - CALCULUS OF BILE DUCT W/O CHOLANGITIS OR CHOLECYST W/O OBST Status: Acute Current Visit: Yes (2) Cholelithiases SNOMED Code(s): 702997843 Code(s): K80.20 - CALCULUS OF GALLBLADDER W/O CHOLECYSTITIS W/O OBSTRUCTION Status: Acute Current Visit: No Qualifiers: Cholelithiasis location: gallbladder Cholecystitis presence: without cholecystitis Biliary obstruction: without biliary obstruction Qualified Code(s): K80.20 - Calculus of gallbladder without cholecystitis without obstruction - Problem List Review Problem List Initiated/Reviewed/Updated: Yes - Plan Plan:: 30-year-old with a history of colon leak T ounces presented with the right upper quadrant abdominal pain following eating mac & cheese. White blood cell count is normal, liver enzymes mildly elevated. Most likely the patient has acute gallbladder attack with cholelithiasis, possible cholecystitis The patient received Zosyn on admission. Consults surgery for an evaluation Keep nothing by mouth Pain control with IV Dilaudid as needed DVT prophylaxis with subcutaneous heparin
[2020-05-12] MEDS ORDERED: Ondansetron 4 MG/2 ML SDV IV ONE (10:00)
[2020-05-12] MEDS ORDERED: Lactated Ringers 1,000 ML IV ONE (10:00)
[2020-05-12] MEDS ORDERED: Dexamethasone 4 MG/ML SDV IV ONE (10:00)
[2020-05-12] MEDS ORDERED: fentaNYL 100 MCG/2 ML SDV IV ONE (10:00)
[2020-05-12] MEDS ORDERED: Rocuronium 100 MG/10 ML MDV IV ONE (10:00)
[2020-05-12] MEDS ORDERED: Propofol 200 MG/20 ML SDV IV ONE (10:00)
[2020-05-12] MEDS ORDERED: Midazolam 1 MG/ML 2 ML SDV IV ONE (10:00)
[2020-05-12] MEDS ORDERED: Succinylcholine 200 MG/10 ML MDV IV ONE (10:00)
[2020-05-12] MEDS ORDERED: Lidocaine 1% with EPINEPHrine 1:100,000 20 ML MDV ONE (10:52)
[2020-05-12] MEDS ORDERED: Lidocaine 1% with EPINEPHrine 1:100,000 30 ML MDV INJECT ONE (10:55)
[2020-05-12] MEDS ORDERED: Neostigmine Methylsulfate 10 MG/10 ML MDV IV ONE (11:00)
[2020-05-12] MEDS ORDERED: Ketorolac 30 MG/ML SDV IVPUSH ONE (11:00)
[2020-05-12] MEDS ORDERED: Glycopyrrolate 0.2 MG/ML 2 ML SDV IV ONE (11:00)
[2020-05-12] MEDS ORDERED: Acetaminophen/oxyCODONE 325-5 MG Tab PO PRN (11:37)
[2020-05-12] MEDS: HYDROmorphone 0.5 MG/0.5 ML Syringe IVPUSH PRN ×3 (12:16→21:37)
--- NOTE | 2020-05-12 18:38 | OR ---
DATE: 05/12/2020 PREOPERATIVE DIAGNOSIS: Acute cholecystitis, cholelithiasis. POSTOPERATIVE DIAGNOSIS: Acute cholecystitis, cholelithiasis. PROCEDURE: Laparoscopic cholecystectomy. ANESTHESIA: General. ESTIMATED BLOOD LOSS: Minimum. SPECIMEN: Gallbladder and stones. INDICATION FOR PROCEDURE: This 30-year-old female was admitted to the hospital last night on consultation from Surgery this morning. She still has an acute gallbladder and I have recommended cholecystectomy. OPERATIVE FINDINGS: Thick-walled gallbladder and multiple stones. PROCEDURE IN DETAIL: After adequate preparation, an infraumbilical incision was made and a Veress needle placed intra-abdominally for insufflation. This was then exchanged for a 5 mm trocar and camera. Three other trocars were placed under direct vision. Examination of the gallbladder showed this to be thick- walled and with pericholecystic fluid. The cystic triangle structures were separately identified, triply clipped and divided. The gallbladder was then taken off the liver bed using cautery and blunt dissection. Hemostasis was controlled with cautery. The right upper quadrant was irrigated with saline and cleared. There was no spillage of bile or stones. The gallbladder was placed within a sterile retrieval bag and brought out through the epigastric trocar site by dilating the fascia. This was then reapproximated using a 0 Vicryl suture. 1% xylocaine with epinephrine was used to numb up the fascial incision. The abdomen had been desufflated. Skin closed with Vicryl. The patient was taken to recovery room. Opening the gallbladder on the back table revealed multiple rhomboid-appearing stones and a thick-walled gallbladder. [facility] /[id number]
[2020-05-13] MEDS ORDERED: Heparin Sodium 5,000 Units/ML Vial SUBCUT SCH (07:00)
[2020-05-13] MEDS: Acetaminophen/oxyCODONE 325-5 MG Tab PO PRN (07:27)
[2020-05-13 07:59] VITALS: BP 116/55; PULSE 49
[2020-05-13] MEDS: Famotidine 20 MG Tab PO SCH (08:58)
--- NOTE | 2020-05-13 09:15 | PCM.SN.2 ---
- Free Text/Narrative Note: Stable POD #1. VSS. PO liquid tolerated. Wounds clean and dry. Pain controlled. Can discharge now. FU my clinic week of Jun 16 if needed. Percocet #10 tablets given for pain. No restrictions on diet or activity.
--- NOTE | 2020-05-13 10:28 | PCM.DCSUM1 ---
Discharge Summary - Hospital Course Free Text/Narrative:: 30-year-old who presented with a recurrent right upper quadrant abdominal pain. The patient was noted to have mildly elevated liver enzymes, recent ultrasound showed gallstones. The patient was seen by surgery and underwent laparoscopic cholecystectomy. Acut e cholecystitis was noted. The patient tolerated the procedure well and subsequently was able to eat and drink. She will be discharged in a stable condition. Diagnosis: Stroke: No - Discharge Data Discharge Date: 05/13/20 Discharge Disposition: Home, Self-Care 01 Condition: Stable - Referral to Home Health Primary Care Physician: Monica Seo MD - Discharge Diagnosis/Problem(s) (1) Cholecystitis SNOMED Code(s): 45258495 ICD Code: K81.9 - CHOLECYSTITIS, UNSPECIFIED Status: Acute Current Visit: Yes - Patient Summary/Data Consults: Consultations 05/12/20 02:52 Consult to Physician [CONS] Routine - Patient Instructions Diet: Heart Healthy Diet Activity: As Tolerated - Discharge Plan *PRESCRIPTION DRUG MONITORING PROGRAM REVIEWED*: Not Applicable *COPY OF PRESCRIPTION DRUG MONITORING REPORT IN PATIENT ELO: Not Applicable Home Medications: Home Meds Famotidine 20 mg PO DAILY 05/12/20 [History] Ondansetron [Zofran] 4 mg PO ASDIRECTED PRN 05/12/20 [History] Patient Handouts: Acetaminophen; Oxycodone tablets, Laparoscopic Cholecystectomy, Care After, [id number] Referrals: Kamaljit Erazo MD [Physician] - - Discharge Summary/Plan Comment DC Time >30 min.: No - General Info Date of Service: 05/13/20 Subjective Update: Pain is well controlled Minimal abdominal pain. Tolerating food Feeling well, would like to go home - Review of Systems General: Denies: Fever Pulmonary: Denies: Shortness of Breath Cardiovascular: Denies: Chest Pain, Edema Genitourinary: Denies: Dysuria - Patient Data Vitals - Most Recent: Last Vital Signs Temp 98 F 05/13/20 07:59 Pulse 49 L 05/13/20 07:59 Resp 18 05/13/20 07:59 BP 116/55 L 05/13/20 07:59 Pulse Ox 100 05/13/20 07:59 Weight - Most Recent: 170 lb I&O - Last 24 hours: Intake & Output 0805/13/20 05/13/20 22:59 06:59 14:59 Intake Total 300 240 Output Total 800 Balance -500 240 Med Orders - Current: Current Medications Acetaminophen (Tylenol) 650 mg PO Q4H PRN PRN Reason: Pain (Mild 1-3)/fever Docusate Sodium (Colace) 100 mg PO BID PRN PRN Reason: Constipation Last Admin: 05/13/20 09:02 Dose: 100 mg Documented by: Famotidine (Pepcid) 20 mg PO BID [facility] Last Admin: 05/13/20 08:58 Dose: 20 mg Documented by: Heparin Sodium (Porcine) (Heparin Sodium) 5,000 units SUBCUT Q8HR [facility] Last Admin: 05/13/20 06:18 Dose: Not Given Documented by: Hydromorphone HCl (Dilaudid) 0.25 mg IVPUSH Q2H PRN PRN Reason: Pain (severe 7-10) Last Admin: 05/12/20 21:37 Dose: 0.25 mg Documented by: Sodium Chloride (Normal Saline) 1,000 mls @ 125 mls/hr IV ASDIRECTED [facility] Last Infusion: 05/12/20 15:22 Dose: 0 mls/hr Documented by: Ondansetron HCl (Zofran) 4 mg IVPUSH Q4H PRN PRN Reason: Nausea/Vomiting Last Admin: 05/12/20 12:16 Dose: 4 mg Documented by: Oxycodone/Acetaminophen (Percocet 325-5 Mg) 1 tab PO Q4H PRN PRN Reason: Pain (moderate 4-6) Last Admin: 05/13/20 07:27 Dose: 1 tab Documented by: Discontinued Medications Dexamethasone (Dexamethasone) 8 mg IV .STK-MED ONE Stop: 05/12/20 10:01 Fentanyl (Sublimaze) 4 mcg IV .STK-MED ONE Stop: 05/12/20 10:01 Glycopyrrolate (Glycopyrrolate) 0.4 mg IV .STK-MED ONE Stop: 05/12/20 11:01 Hydromorphone HCl (Dilaudid) 1 mg IVPUSH ONETIME ONE Stop: 05/12/20 01:24 Last Admin: 05/12/20 01:35 Dose: 1 mg Documented by: Hydromorphone HCl (Dilaudid) 0.5 mg IVPUSH ONETIME PRN PRN Reason: Pain (moderate 4-6) Last Admin: 05/12/20 02:00 Dose: 0.5 mg Documented by: Sodium Chloride (Normal Saline) 1,000 mls @ 999 mls/hr IV .BOLUS ONE Stop: 05/12/20 02:23 Last Admin: 05/12/20 01:33 Dose: 999 mls/hr Documented by: Piperacillin Sod/Tazobactam (Sod 3.375 gm/ Sodium Chloride) 100 mls @ 200 mls/hr IV ONETIME ONE Stop: 05/12/20 03:01 Last Admin: 05/12/20 02:53 Dose: 200 mls/hr Documented by: Lactated Ringer's (Ringers, Lactated) 1,000 mls @ as directed IV .STK-MED ONE Stop: 05/12/20 10:01 Ketorolac Tromethamine (Toradol) 30 mg IVPUSH .STK-MED ONE Stop: 05/12/20 11:01 Lidocaine/Epinephrine (Xylocaine 1% With Epinephrine 1:100,000) Confirm Administered Dose 20 ml .ROUTE .STK-MED ONE Stop: 05/12/20 10:53 Lidocaine/Epinephrine (Xylocaine 1% With Epinephrine 1:100,000) 8 ml INJECT .STK-MED ONE Stop: 05/12/20 10:56 Last Admin: 05/12/20 10:55 Dose: 8 ml Documented by: Midazolam HCl (Versed 1 Mg/Ml) 2 mg IV .STK-MED ONE Stop: 05/12/20 10:01 Neostigmine Methylsulfate (Neostigmine Methylsulfate) 3 mg IV .STK-MED ONE Stop: 05/12/20 11:01 Ondansetron HCl (Zofran) 4 mg IVPUSH ONETIME ONE Stop: 05/12/20 01:24 Last Admin: 05/12/20 01:33 Dose: 4 mg Documented by: Ondansetron HCl (Zofran) 4 mg IV .STK-MED ONE Stop: 05/12/20 10:01 Oxycodone/Acetaminophen (Percocet 325-5 Mg) 1 tab PO Q4H PRN PRN Reason: Pain (moderate 4-6) Propofol (Diprivan 20 Ml) 180 mg IV .STK-MED ONE Stop: 05/12/20 10:01 Rocuronium [place] (Zemuron) 45 mg IV .STK-MED ONE Stop: 05/12/20 10:01 Succinylcholine Chloride (Quelicin) 80 mg IV .STK-MED ONE Stop: 05/12/20 10:01 - Exam Quality Assessment: Denies: Supplemental Oxygen General: Reports: Alert Neck: Reports: Supple Lungs: Reports: Clear to Auscultation, Normal Respiratory Effort Cardiovascular: Reports: Regular Rate, Regular Rhythm GI/Abdominal Exam: Normal Bowel Sounds, Soft, Non-Tender Extremities: No Pedal Edema
== END 2020-05-13 10:54 | disposition home or self-care (01) ==
LOC: DL.ED 01:19 → EEVIPCON 02:32 → DL.MS 02:32
PROVIDERS: ADMIT Internal Medicine; ATTEND Internal Medicine
DX: K80.12 Calculus of gallbladder with acute and chronic cholecystitis without obstruction (principal); E66.9 Obesity, unspecified; F17.210 Nicotine dependence, cigarettes, uncomplicated; Z11.59 Encounter for screening for other viral diseases; Z68.31 Body mass index [BMI] 31.0-31.9, adult
CPT/HCPCS: 00790; 36415; 80053; 82150; 83605; 83690; 84703; 85025; 96361; 96374; 96375; 99284-25; A9270-GY; J0330; J1100; J1170; J1885; J2250; J2405; J2543; J2704; J2710; J3010; J3490; J7030; J7050; J7120; U0002

== ENCOUNTER 2021-01-14 16:26 | Emergency (ER) | payer MEDICAID ==
[2021-01-14 16:35] VITALS: BP 135/81; PULSE 90
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
[2021-01-14 17:22] LABS: ANION GAP 13.6 mEq/L (7-13); CHLORIDE,CL 103 mmol/L (98-107); SODIUM,NA 139 mmol/L (136-145)
--- NOTE | 2021-01-14 17:46 | CT ---
PROCEDURE INFORMATION: Exam: CT Cervical Spine Without Contrast Exam date and time: 01/14/2021 5:33 PM Age: 30 years old Clinical indication: Pain and injury or trauma; Fall; Blunt trauma; Other: Posterior head pain TECHNIQUE: Imaging protocol: Computed tomography images of the cervical spine without contrast. Radiation optimization: All CT scans at this facility use at least one of these dose optimization techniques: automated exposure control; mA and/or kV adjustment per patient size (includes targeted exams where dose is matched to clinical indication); or iterative reconstruction. COMPARISON: No relevant prior studies available. FINDINGS: Bones/joints: There is a nonspecific reversal of the normal cervical lordosis. The facet joints demonstrate mild degenerative hypertrophy and sclerosis. There is no evidence of acute fracture. Discs/Spinal canal/Neural foramina: The cervical spine demonstrates mild degenerative changes at multiple levels. Lungs: Lung apices are normal. Soft tissues: There are no soft tissue masses or fluid collections. IMPRESSION: 1. There is a nonspecific reversal of the normal cervical lordosis. 2. The cervical spine demonstrates mild degenerative changes at multiple levels. 3. No evidence of acute fracture.
--- NOTE | 2021-01-14 17:47 | CT ---
PROCEDURE INFORMATION: Exam: CT Head Without Contrast Exam date and time: 01/14/2021 5:33 PM Age: 30 years old Clinical indication: Other: Posterior head pain TECHNIQUE: Imaging protocol: Computed tomography of the head without contrast. Radiation optimization: All CT scans at this facility use at least one of these dose optimization techniques: automated exposure control; mA and/or kV adjustment per patient size (includes targeted exams where dose is matched to clinical indication); or iterative reconstruction. COMPARISON: No relevant prior studies available. FINDINGS: Brain: No hemorrhage, mass effect or midline shift. Cerebral ventricles: No ventriculomegaly. Bones/joints: No acute fracture. Paranasal sinuses: Small air-fluid level left maxillary sinus. Remaining sinuses are clear. Mastoid air cells: Visualized mastoid air cells are well aerated. Soft tissues: Soft tissue hematoma right posterior parietal region. IMPRESSION: 1. No hemorrhage, mass effect or midline shift. 2. Small air-fluid level left maxillary sinus. 3. Soft tissue hematoma right posterior parietal region.
== END 2021-01-14 18:26 | disposition home or self-care (01) ==
LOC: DL.ED 16:26
DX: S00.03XA Contusion of scalp, initial encounter (principal); E66.9 Obesity, unspecified; Z68.28 Body mass index [BMI] 28.0-28.9, adult; V48.4XXA Person boarding or alighting a car injured in noncollision transport accident, initial encounter; Y92.410 Unspecified street and highway as the place of occurrence of the external cause
CPT/HCPCS: 36415; 70450; 72125; 80053; 84703; 85025; 99285-25

== ENCOUNTER 2022-09-27 11:25 | Inpatient (IN) | payer MEDICAID ==
[2022-09-27] MEDS: Simethicone 80 MG Tab.Chew PO SCH ×3 (11:02→22:03)
[2022-09-27] MEDS: Prenatal Multivitamin with Calcium/Folic Acid/Iron Tab PO SCH (11:02)
[~2022-09-27 11:25] MED LIST: Acetaminophen 325 MG Tab PO PRN; Acetaminophen/oxyCODONE 325-5 MG Tab PO PRN; Carboprost Tromethamine 250 MCG/1 ML Amp IM PRN; Citric Acid/Sodium Citrate Solution 30 ML Cup PO ONE; Docusate Sodium 100 MG Cap PO PRN; Ibuprofen 800 MG Tab PO PRN; Methylergonovine 0.2 MG/1 ML Amp IM PRN; Misoprostol 400 MCG (4 X 100 MCG TAB) RECTAL PRN; Naloxone 2 MG/2 ML Syringe IVPUSH PRN; Ondansetron 4 MG/2 ML SDV IVPUSH PRN; Oxytocin/Normal Saline 30 UNIT/500 ML BAG IV SCH; ceFAZolin 2 GM in Premix Bag 1 BAG IV ONE; diphenhydrAMINE 50 MG/ML SDV IVPUSH PRN; ePHEDrine 50 MG/ML SDV IVPUSH PRN
[2022-09-27] MEDS: Lactated Ringers 1,000 ML IV SCH ×3 (12:15→19:30)
[2022-09-27] MEDS ORDERED: Oxytocin 10 Units/1 ML SDV ONE (12:32)
[2022-09-27] MEDS ORDERED: Oxytocin/Normal Saline 60 UNIT/1,000 ML BAG ONE (12:32)
[2022-09-27] MEDS ORDERED: Famotidine 20 MG/2 ML SDV IVPUSH ONE (14:33)
[2022-09-27] MEDS ORDERED: EPINEPHrine 1 MG/ML SDV ONE (15:00)
[2022-09-27] MEDS ORDERED: Morphine PF 10 MG/10 ML SDV IT ONE (15:00)
[2022-09-27] MEDS ORDERED: Lactated Ringers 1,000 ML IV ONE (15:00)
[2022-09-27] MEDS ORDERED: Sodium Chloride 0.9% 10 ML Syringe IV ONE (15:00)
[2022-09-27] MEDS ORDERED: Ondansetron 4 MG/2 ML SDV IV ONE (15:00)
[2022-09-27] MEDS ORDERED: Dexmedetomidine 200 MCG/2 ML SDV IT ONE (15:00)
[2022-09-27] MEDS ORDERED: Ketorolac 30 MG/ML SDV IVPUSH ONE (15:00)
[2022-09-27] MEDS ORDERED: Dexamethasone 4 MG/ML SDV IV ONE (15:00)
[2022-09-27] MEDS ORDERED: Oxytocin/Normal Saline 30 UNIT/500 ML BAG IV SCH (16:15)
[2022-09-27] MEDS ORDERED: Measles, Mumps & Rubella Vaccine 0.5 ML SDV SUBCUT ONE (16:27)
[2022-09-27] MEDS ORDERED: Diphtheria,Pertussis(Acell),Tetanus Vaccine 0.5 ML Syringe IM ONE (16:27)
[2022-09-27] MEDS ORDERED: Ondansetron 4 MG/2 ML SDV IVPUSH PRN (16:49)
[2022-09-27] MEDS ORDERED: Promethazine 25 MG/ML SDV IM PRN (16:49)
[2022-09-27] MEDS ORDERED: Naloxone 2 MG/2 ML Syringe IVPUSH PRN (16:49)
[2022-09-27] MEDS ORDERED: ePHEDrine 50 MG/ML SDV IVPUSH PRN (16:49)
[2022-09-27] MEDS ORDERED: Lactated Ringers 500 ML IV SCH ×2 (17:00)
[2022-09-27] MEDS: Ketorolac 30 MG/ML SDV IVPUSH SCH ×2 (17:17→22:03)
[2022-09-28] MEDS: Lactated Ringers 1,000 ML IV SCH (04:11)
[2022-09-28] MEDS: Ketorolac 30 MG/ML SDV IVPUSH SCH ×2 (04:13→10:15)
[2022-09-28] MEDS: Ferrous Sulfate 325 MG Tab PO SCH (09:14)
[2022-09-28] MEDS: Simethicone 80 MG Tab.Chew PO SCH ×5 (09:14→20:58)
[2022-09-28] MEDS: Prenatal Multivitamin with Calcium/Folic Acid/Iron Tab PO SCH ×2 (09:14→19:08)
[2022-09-28] MEDS: Acetaminophen/oxyCODONE 325-5 MG Tab PO PRN ×3 (12:54→22:27)
[2022-09-28] MEDS ORDERED: Acetaminophen 325 MG Tab PO PRN (14:25)
[2022-09-28] MEDS ORDERED: diphenhydrAMINE 50 MG/ML SDV IVPUSH PRN (14:26)
[2022-09-28] MEDS ORDERED: Carboprost Tromethamine 250 MCG/1 ML Amp IM PRN (14:26)
[2022-09-28] MEDS ORDERED: Methylergonovine 0.2 MG/1 ML Amp IM PRN (14:28)
[2022-09-28] MEDS ORDERED: Misoprostol 400 MCG (4 X 100 MCG TAB) RECTAL PRN (14:28)
[2022-09-28] MEDS: Ibuprofen 800 MG Tab PO PRN (19:10)
[2022-09-28] MEDS: Docusate Sodium 100 MG Cap PO PRN (19:10)
[2022-09-29] MEDS: Acetaminophen/oxyCODONE 325-5 MG Tab PO PRN ×5 (03:17→21:32)
[2022-09-29] MEDS: Prenatal Multivitamin with Calcium/Folic Acid/Iron Tab PO SCH (08:09)
[2022-09-29] MEDS: Simethicone 80 MG Tab.Chew PO SCH ×4 (08:09→21:32)
[2022-09-29] MEDS: Ibuprofen 800 MG Tab PO PRN ×2 (08:09→19:18)
[2022-09-29] MEDS: Docusate Sodium 100 MG Cap PO PRN ×2 (08:11→19:18)
[2022-09-29] MEDS: Ferrous Sulfate 325 MG Tab PO SCH (08:11)
[2022-09-29] MEDS ORDERED: Bisacodyl 10 MG Supp RECTAL ONE (19:19)
[2022-09-30] MEDS: Acetaminophen/oxyCODONE 325-5 MG Tab PO PRN ×3 (01:48→11:40)
[2022-09-30] MEDS: Ibuprofen 800 MG Tab PO PRN (04:51)
[2022-09-30] MEDS: Docusate Sodium 100 MG Cap PO PRN (07:58)
[2022-09-30] MEDS: Prenatal Multivitamin with Calcium/Folic Acid/Iron Tab PO SCH ×2 (07:58→09:20)
[2022-09-30] MEDS: Ferrous Sulfate 325 MG Tab PO SCH (07:59)
[2022-09-30] MEDS: Simethicone 80 MG Tab.Chew PO SCH (07:59)
[2022-09-30 12:04] VITALS: BP 113/64; PULSE 78
== END 2022-09-30 11:45 | disposition home or self-care (01) | DRG 787 ==
LOC: DL.OB 11:25 → OBSVTOIN 15:27 → DL.OB 15:27
PROVIDERS: ADMIT Family Medicine; ATTEND Family Medicine
PROC: 10D00Z1 Extraction of Products of Conception, Low, Open Approach (ICD-10-PCS; principal; 2022-09-17)
DX: O34.211 Maternal care for low transverse scar from previous cesarean delivery (principal); D62 Acute posthemorrhagic anemia; Z3A.38 38 weeks gestation of pregnancy; Z37.0 Single live birth; O99.02 Anemia complicating childbirth; Z20.822 Contact with and (suspected) exposure to COVID-19
CPT/HCPCS: 01961; 36415; 59025; 85027; 86850; 86900; 86901; 86920; 86922; 90471; 90686; 90707; 90715; 94010; A9270-GY; J0171; J0690; J1100; J1885; J2270; J2405; J2590; J3490; J7120; U0002

== ENCOUNTER 2023-08-14 11:35 | Emergency (ER) | payer MEDICAID ==
[2023-08-14] MEDS ORDERED: LORazepam 2 MG/ML SDV IM ONE (13:02)
[2023-08-14 13:06] VITALS: BP 123/86; PULSE 105
[2023-08-14 13:22] LABS: BASOPHILS PERCENT AUTO 0.3 % (0.0-1.0); EOSINOPHILS PERCENT AUTO 0.2 % (1.0-3.0); HEMATOCRIT 39.6 % (37.0-47.0); HEMOGLOBIN 12.9 g/dL (12.0-16.0); LYMPHOCYTES PERCENT AUTO 17.8 % (20.5-50.1); MEAN CORPUSCULAR HEMOGLOBIN 24.9 pg (27.0-34.0); MEAN CORPUSCULAR HGB CONC 32.6 g/dL (33.0-35.0); MEAN CORPUSCULAR VOLUME 76.3 fL (80-100); MONOCYTES PERCENT AUTO 6.1 % (2-8); NEUTROPHILS PERCENT AUTO 75.6 % (42.2-75.2); PLATELET COUNT,PLT 331 10^3/uL (150-450); RED BLOOD CELL COUNT 5.19 10^6/uL (4.2-5.4); WHITE BLOOD CELL COUNT,WBC 9.3 10^3/uL (5.0-10.0)
[2023-08-14 13:48] LABS: A/G RATIO 0.8; ALANINE AMINOTRANSFERASE,ALT 39 U/L (14-59); ALBUMIN 3.7 g/dL (3.4-5.0); ALKALINE PHOSPHATASE 113 U/L (46-116); ANION GAP 15.8 mEq/L (7-13); ASPARTATE AMNIOTRANSFERASE,AST 24 U/L (15-37); BILIRUBIN TOTAL 0.6 mg/dL (0.2-1.0); BLOOD UREA NITROGEN,BUN 4 mg/dL (7-18); BUN/CREATININE RATIO 5.7 (No establ ref range); CALCIUM 8.4 mg/dL (8.5-10.1); CARBON DIOXIDE,CO2 24 mmol/L (21-32); CHLORIDE,CL 101 mmol/L (98-107); GLUCOSE RANDOM 112 mg/dL (70-99); POTASSIUM,K 3.8 mmol/L (3.5-5.1); PROTEIN TOTAL,TP 8.3 g/dL (6.4-8.2); SODIUM,NA 137 mmol/L (136-145)
[2023-08-14 13:50] LABS: ESTIMATED GFR 119 mL/min (>=60); ETHANOL BLOOD MEDICAL < 3 mg/dL (0)
== END 2023-08-14 14:13 | disposition home or self-care (01) ==
LOC: DL.ED 11:35
DX: F41.0 Panic disorder [episodic paroxysmal anxiety] (principal); Z79.899 Other long term (current) drug therapy
CPT/HCPCS: 36415; 80053; 80307; 84484; 85025; 93005; 93010; 96372; 99284; 99285; J2060

== ENCOUNTER 2023-09-03 10:56 | Emergency (ER) | payer MEDICAID ==
[2023-09-03] MEDS ORDERED: Ondansetron 4 MG/2 ML SDV IV ONE (11:11)
[2023-09-03] MEDS ORDERED: Thiamine 100 MG in Sodium Chloride 0.9% 100 ML IV ONE (11:11)
[2023-09-03] MEDS ORDERED: Sodium Chloride 0.9% 10 ML Syringe FLUSH PRN (11:11)
[2023-09-03] MEDS ORDERED: Sodium Chloride 0.9% 1,000 ML IV ONE (11:11)
[2023-09-03] MEDS ORDERED: LORazepam 2 MG/ML SDV IVPUSH ONE (11:12)
[2023-09-03 11:13] VITALS: BP 136/86; PULSE 110
[2023-09-03] MEDS ORDERED: Famotidine 20 MG/2 ML SDV IVPUSH ONE (11:14)
[2023-09-03 11:25] LABS: BASOPHILS PERCENT AUTO 0.3 % (0.0-1.0); EOSINOPHILS PERCENT AUTO 0.6 % (1.0-3.0); HEMATOCRIT 38.3 % (37.0-47.0); HEMOGLOBIN 12.4 g/dL (12.0-16.0); LYMPHOCYTES PERCENT AUTO 13.6 % (20.5-50.1); MEAN CORPUSCULAR HGB CONC 32.4 g/dL (33.0-35.0); MEAN CORPUSCULAR VOLUME 77.2 fL (80-100); MONOCYTES PERCENT AUTO 5.6 % (2-8); NEUTROPHILS PERCENT AUTO 79.9 % (42.2-75.2); PLATELET COUNT,PLT 376 10^3/uL (150-450); RED BLOOD CELL COUNT 4.96 10^6/uL (4.2-5.4); WHITE BLOOD CELL COUNT,WBC 10.3 10^3/uL (5.0-10.0)
[2023-09-03 11:48] LABS: A/G RATIO 0.8; ALBUMIN 3.4 g/dL (3.4-5.0); ANION GAP 14.2 mEq/L (7-13); BILIRUBIN TOTAL 0.4 mg/dL (0.2-1.0); BUN/CREATININE RATIO 7.6 (No establ ref range); CALCIUM 8.2 mg/dL (8.5-10.1); CREATININE 0.66 mg/dL (0.55-1.02); EST CRCL DRUG DOSING (CG) 97.68 mL/min; PROTEIN TOTAL,TP 7.6 g/dL (6.4-8.2)
[2023-09-03 12:11] LABS: POTASSIUM,K 3.2 mmol/L (3.5-5.1)
[2023-09-03 12:48] LABS: APPEARANCE,URINE CLEAR (CLEAR); BILIRUBIN,URINE NEGATIVE (NEGATIVE); COLOR,URINE YELLOW (YELLOW); GLUCOSE,URINE NEGATIVE (NEGATIVE); KETONES,URINE NEGATIVE (NEGATIVE); LEUKOCYTE ESTERASE,URINE NEGATIVE (NEGATIVE); NITRITE,URINE NEGATIVE (NEGATIVE); OCCULT BLOOD,URINE NEGATIVE (NEGATIVE); PH,URINE 6.5 (5.0-9.0); PROTEIN,URINE NEGATIVE (NEGATIVE); UROBILINOGEN,URINE 0.2 mg/dL (0.2-1.0)
[2023-09-03 12:49] LABS: AMPHETAMINES,URINE NEGATIVE (NEGATIVE); BARBITURATES,URINE NEGATIVE (NEGATIVE); BENZODIAZEPINE,URINE NEGATIVE (NEGATIVE); MDMA (ECSTASY), URINE NEGATIVE (NEGATIVE); METHADONE,URINE NEGATIVE (NEGATIVE); METHAMPHETAMINES,URINE NEGATIVE (NEGATIVE); OPIATES,URINE NEGATIVE (NEGATIVE); OXYCODONE,URINE NEGATIVE (NEGATIVE); PHENCYCLIDINE,URINE NEGATIVE (NEGATIVE); TCA,URINE NEGATIVE (NEGATIVE)
== END 2023-09-03 13:04 | disposition home or self-care (01) ==
LOC: DL.ED 10:56
DX: F41.0 Panic disorder [episodic paroxysmal anxiety] (principal); E87.6 Hypokalemia; F10.10 Alcohol abuse, uncomplicated
CPT/HCPCS: 36415; 80053; 80305-QW; 80307; 81003; 81025; 83690; 84484; 85025; 93005; 93010; 96365; 96375; 99284; 99285-25; J2060; J2405; J3411; J3490; J7030

== ENCOUNTER 2023-09-25 12:41 | Emergency (ER) | payer MEDICAID ==
[2023-09-25 13:14] VITALS: BP 127/90; PULSE 118
[2023-09-25] MEDS ORDERED: cefTRIAXone 1 GM, Lidocaine 1% 2.1 ML IM ONE ×2 (13:35)
[2023-09-25] MEDS ORDERED: Azithromycin 250 MG Tab PO ONE (13:35)
[2023-09-25] MEDS ORDERED: Dexamethasone 4 MG Tab PO ONE (13:35)
[2023-09-25] MEDS ORDERED: Take Home: Azithromycin 250 MG, 2 Tab Pack PO ONE (13:36)
== END 2023-09-25 14:04 | disposition home or self-care (01) ==
LOC: DL.ED 12:41
DX: J03.80 Acute tonsillitis due to other specified organisms (principal); H66.003 Acute suppurative otitis media without spontaneous rupture of ear drum, bilateral
CPT/HCPCS: 99283; A9270; J8540

== ENCOUNTER 2023-11-09 06:26 | Emergency (ER) | payer MEDICAID ==
[2023-11-09] MEDS: Sodium Chloride 0.9% 10 ML Syringe FLUSH PRN (07:24)
[2023-11-09] MEDS: Ondansetron 4 MG/2 ML SDV IV ONE (07:30)
[2023-11-09] MEDS: LORazepam 2 MG/ML SDV IVPUSH ONE (07:30)
[2023-11-09] MEDS: Sodium Chloride 0.9% 1,000 ML IV ONE (07:30)
[2023-11-09] MEDS: Thiamine 100 MG in Sodium Chloride 0.9% 100 ML IV ONE (07:30)
[2023-11-09 08:57] VITALS: BP 123/86
[2023-11-09 09:19] VITALS: PULSE 111
== END 2023-11-09 09:20 | disposition home or self-care (01) ==
LOC: DL.ED 06:26
DX: F41.0 Panic disorder [episodic paroxysmal anxiety] (principal); F10.10 Alcohol abuse, uncomplicated
CPT/HCPCS: 36415; 80307; 96365; 96375; 99284; J2060; J2405; J3411; J3490; J7030

== ENCOUNTER 2024-02-19 05:37 | Emergency (ER) | payer MEDICAID ==
[2024-02-19] MEDS: predniSONE 20 MG Tab PO ONE ×2 (09:01)
[2024-02-19 09:05] VITALS: BP 119/79; PULSE 78
[2024-02-21 05:47] LABS: RHEUMATOID FACTOR <10 IU/mL (0-14)
== END 2024-02-19 09:01 | disposition home or self-care (01) ==
LOC: DL.ED 05:37
DX: M25.512 Pain in left shoulder (principal)
CPT/HCPCS: 36415; 73030-LT; 85651; 86140; 86431; 99282; 99283; J7512

== ENCOUNTER 2024-11-07 12:09 | Emergency (ER) | payer MEDICAID ==
[2024-11-07] MEDS: Sodium Chloride 0.9% 1,000 ML IV ONE (12:40)
[2024-11-07] MEDS: Ondansetron 4 MG/2 ML SDV IVPUSH ONE (12:40)
[2024-11-07] MEDS: Ketorolac 30 MG/ML SDV IVPUSH ONE (12:40)
[2024-11-07 12:42] LABS: BASOPHILS PERCENT AUTO 0.3 % (0.0-1.0); EOSINOPHILS PERCENT AUTO 3.3 % (1.0-3.0); HEMATOCRIT 39.6 % (37.0-47.0); HEMOGLOBIN 12.7 g/dL (12.0-16.0); LYMPHOCYTES PERCENT AUTO 22.9 % (20.5-50.1); MEAN CORPUSCULAR HEMOGLOBIN 24.4 pg (27.0-34.0); MEAN CORPUSCULAR HGB CONC 32.1 g/dL (33.0-35.0); MEAN CORPUSCULAR VOLUME 76.2 fL (80-100); MONOCYTES PERCENT AUTO 7.8 % (2-8); NEUTROPHILS PERCENT AUTO 65.7 % (42.2-75.2); PLATELET COUNT,PLT 342 10^3/uL (150-450); WHITE BLOOD CELL COUNT,WBC 7.2 10^3/uL (5.0-10.0)
[2024-11-07 13:00] LABS: ANION GAP 14.3 mEq/L (7-13); CALCIUM 7.8 mg/dL (8.5-10.1); CARBON DIOXIDE,CO2 26 mmol/L (21-32); CHLORIDE,CL 102 mmol/L (98-107); CREATININE 0.54 mg/dL (0.55-1.02); EST CRCL DRUG DOSING (CG) 118.29 mL/min; GLUCOSE RANDOM 108 mg/dL (70-99); MAGNESIUM 1.6 mg/dL (1.8-2.4); POTASSIUM,K 3.3 mmol/L (3.5-5.1); SODIUM,NA 139 mmol/L (136-145)
[2024-11-07 13:06] LABS: BLOOD UREA NITROGEN,BUN 2 mg/dL (7-18); C-REACTIVE PROTEIN < 0.50 ng/dL (<=0.50); ESTIMATED GFR 125 mL/min (>=60)
[2024-11-07] MEDS: Potassium Chloride 10 MEQ Tab.ER PO ONE (13:19)
[2024-11-07] MEDS: diphenhydrAMINE 50 MG/ML SDV IVPUSH ONE (13:45)
[2024-11-07] MEDS: diphenhydrAMINE 50 MG/ML SDV ONE (13:55)
[2024-11-07 14:41] VITALS: BP 128/95; PULSE 100
== END 2024-11-07 14:10 | disposition home or self-care (01) ==
LOC: DL.ED 12:09
DX: B34.9 Viral infection, unspecified (principal); Z86.16 Personal history of COVID-19
CPT/HCPCS: 36415; 80048; 83735; 85025; 86140; 96361; 96374; 96375; 99284-25; A9270-GY; J1200; J1885; J2405; J7030

== ENCOUNTER 2025-05-23 16:52 | Emergency (ER) | payer MEDICAID ==
[2025-05-23 17:14] LABS: BASOPHILS PERCENT AUTO 0.2 % (0.0-1.0); EOSINOPHILS PERCENT AUTO 2.0 % (1.0-3.0); LYMPHOCYTES PERCENT AUTO 13.1 % (20.5-50.1); MONOCYTES PERCENT AUTO 6.9 % (2-8); NEUTROPHILS PERCENT AUTO 77.8 % (42.2-75.2); PLATELET COUNT,PLT 303 10^3/uL (150-450); RED BLOOD CELL COUNT 4.91 10^6/uL (4.2-5.4); WHITE BLOOD CELL COUNT,WBC 8.6 10^3/uL (5.0-10.0)
[2025-05-23 17:31] LABS: ALANINE AMINOTRANSFERASE,ALT 136 U/L (14-59); ASPARTATE AMNIOTRANSFERASE,AST 199 U/L (15-37); BILIRUBIN TOTAL 0.6 mg/dL (0.2-1.0); BLOOD UREA NITROGEN,BUN 5 mg/dL (7-18); CARBON DIOXIDE,CO2 25 mmol/L (21-32); CHLORIDE,CL 103 mmol/L (98-107); CREATININE 0.59 mg/dL (0.55-1.02); EST CRCL DRUG DOSING (CG) 107.26 mL/min; GLUCOSE RANDOM 112 mg/dL (70-99); POTASSIUM,K 3.9 mmol/L (3.5-5.1); PROTEIN TOTAL,TP 7.5 g/dL (6.4-8.2); SODIUM,NA 137 mmol/L (136-145)
[2025-05-23 17:32] LABS: A/G RATIO 0.74; ESTIMATED GFR 122 mL/min (>=60); ETHANOL BLOOD MEDICAL < 3 mg/dL (0)
[2025-05-23 19:01] VITALS: BP 133/83; PULSE 76
== END 2025-05-23 18:35 | disposition home or self-care (01) ==
LOC: DL.ED 16:52
DX: R56.9 Unspecified convulsions (principal); R94.5 Abnormal results of liver function studies; Z86.16 Personal history of COVID-19
CPT/HCPCS: 36415; 70450; 80053; 80307; 85025; 99284; 99285

== ENCOUNTER 2025-05-23 21:45 | Emergency (ER) | payer MEDICAID ==
[2025-05-23 22:51] VITALS: BP 135/85; PULSE 97
== END 2025-05-23 22:59 | disposition home or self-care (01) ==
LOC: DL.ED 21:45
DX: R56.9 Unspecified convulsions (principal); Z86.16 Personal history of COVID-19
CPT/HCPCS: 99284

== ENCOUNTER 2025-06-15 12:22 | Emergency (ER) | payer MEDICAID ==
[2025-06-15 12:49] VITALS: BP 127/95; PULSE 98
[2025-06-15 13:05] LABS: BASOPHILS PERCENT AUTO 0.1 % (0.0-1.0); EOSINOPHILS PERCENT AUTO 1.4 % (1.0-3.0); LYMPHOCYTES PERCENT AUTO 9.0 % (20.5-50.1); MONOCYTES PERCENT AUTO 7.1 % (2-8); NEUTROPHILS PERCENT AUTO 82.4 % (42.2-75.2); PLATELET COUNT,PLT 198 10^3/uL (150-450); RED BLOOD CELL COUNT 5.03 10^6/uL (4.2-5.4); WHITE BLOOD CELL COUNT,WBC 7.8 10^3/uL (5.0-10.0)
[2025-06-15 13:25] LABS: ALANINE AMINOTRANSFERASE,ALT 87 U/L (14-59); ASPARTATE AMNIOTRANSFERASE,AST 103 U/L (15-37); BILIRUBIN TOTAL 0.6 mg/dL (0.2-1.0); BLOOD UREA NITROGEN,BUN 5 mg/dL (7-18); CARBON DIOXIDE,CO2 26 mmol/L (21-32); CHLORIDE,CL 102 mmol/L (98-107); CREATININE 0.45 mg/dL (0.55-1.02); EST CRCL DRUG DOSING (CG) 153.55 mL/min; GLUCOSE RANDOM 105 mg/dL (70-99); POTASSIUM,K 3.8 mmol/L (3.5-5.1); PROTEIN TOTAL,TP 8.0 g/dL (6.4-8.2); SODIUM,NA 137 mmol/L (136-145)
[2025-06-15 13:28] LABS: A/G RATIO 0.67; ESTIMATED GFR 130 mL/min (>=60)
[2025-06-15 13:38] LABS: HCG QUALITATIVE,SERUM NEGATIVE (NEGATIVE)
== END 2025-06-15 14:48 | disposition home or self-care (01) ==
LOC: DL.ED 12:22
DX: R56.9 Unspecified convulsions (principal); Z86.16 Personal history of COVID-19
CPT/HCPCS: 36415; 70450; 80053; 83735; 84703; 85025; 99285

== ENCOUNTER 2025-06-20 11:20 | Emergency (ER) | payer MEDICAID ==
[2025-06-20] MEDS ORDERED: Sodium Chloride 0.9% 10 ML Syringe FLUSH PRN (12:07)
[2025-06-20] MEDS: MVI, Adult with Vitamin K 10 ML, Folic Acid 1 MG, Thiamine 100 MG in Lactated Ringers 1... IV ONE (12:25)
[2025-06-20] MEDS: Ondansetron 4 MG/2 ML SDV IVPUSH ONE (12:25)
[2025-06-20 12:26] LABS: BASOPHILS PERCENT AUTO 0.7 % (0.0-1.0); EOSINOPHILS PERCENT AUTO 2.9 % (1.0-3.0); LYMPHOCYTES PERCENT AUTO 24.4 % (20.5-50.1); MONOCYTES PERCENT AUTO 14.1 % (2-8); NEUTROPHILS PERCENT AUTO 57.9 % (42.2-75.2); PLATELET COUNT,PLT 216 10^3/uL (150-450); RED BLOOD CELL COUNT 4.86 10^6/uL (4.2-5.4); WHITE BLOOD CELL COUNT,WBC 4.5 10^3/uL (5.0-10.0)
[2025-06-20 12:47] LABS: INR 1.0 (0.9-1.2); PTT,PARTIAL THROMBOPLSTIN TIME 21.6 SEC (22.0-34.0)
[2025-06-20 12:55] LABS: LACTIC ACID 3.0 mmol/L (0.4-2.0)
[2025-06-20 12:59] LABS: ALANINE AMINOTRANSFERASE,ALT 107 U/L (14-59); ASPARTATE AMNIOTRANSFERASE,AST 101 U/L (15-37); BILIRUBIN TOTAL 0.5 mg/dL (0.2-1.0); BLOOD UREA NITROGEN,BUN 1 mg/dL (7-18); CARBON DIOXIDE,CO2 27 mmol/L (21-32); CHLORIDE,CL 100 mmol/L (98-107); CREATININE 0.47 mg/dL (0.55-1.02); EST CRCL DRUG DOSING (CG) 134.65 mL/min; ETHANOL BLOOD MEDICAL 86 mg/dL (0); GLUCOSE RANDOM 114 mg/dL (70-99); POTASSIUM,K 2.8 mmol/L (3.5-5.1); PROTEIN TOTAL,TP 7.9 g/dL (6.4-8.2); SODIUM,NA 137 mmol/L (136-145); TSH ULTRASENSITIVE 0.13 uIU/mL (0.36-3.74)
[2025-06-20 13:10] LABS: A/G RATIO 0.68; ESTIMATED GFR 129 mL/min (>=60)
[2025-06-20] MEDS: NS with KCl 40mEq 1,000 ML IV SCH (13:52)
[2025-06-20] MEDS: Magnesium Sulfate 2 GM/50 mL 2 GM in Premix Bag 1 BAG IV ONE (14:25)
[2025-06-20] MEDS: Potassium Chloride 10 MEQ Tab.ER PO ONE (15:35)
[2025-06-20 17:02] LABS: MDMA (ECSTASY), URINE NEGATIVE (NEGATIVE); METHAMPHETAMINES,URINE NEGATIVE (NEGATIVE)
[2025-06-20 17:03] LABS: AMPHETAMINES,URINE NEGATIVE (NEGATIVE); BARBITURATES,URINE NEGATIVE (NEGATIVE); OPIATES,URINE NEGATIVE (NEGATIVE); OXYCODONE,URINE NEGATIVE (NEGATIVE); PHENCYCLIDINE,URINE NEGATIVE (NEGATIVE); TCA,URINE NEGATIVE (NEGATIVE)
[2025-06-20 17:53] LABS: BLOOD UREA NITROGEN,BUN 2.0 mg/dL (7-18); CARBON DIOXIDE,CO2 29.0 mmol/L (21-32); CHLORIDE,CL 103.0 mmol/L (98-107); CREATININE 0.45 mg/dL (0.55-1.02); EST CRCL DRUG DOSING (CG) 140.64 mL/min; GLUCOSE RANDOM 97.0 mg/dL (70-99); POTASSIUM,K 3.9 mmol/L (3.5-5.1); SODIUM,NA 139.0 mmol/L (136-145)
[2025-06-20 17:55] LABS: ESTIMATED GFR 130.0 mL/min (>=60)
[2025-06-20 18:24] VITALS: BP 123/86; PULSE 90
== END 2025-06-20 18:00 | disposition home or self-care (01) ==
LOC: DL.ED 11:20
DX: F10.230 Alcohol dependence with withdrawal, uncomplicated (principal); Y90.3 Blood alcohol level of 60-79 mg/100 ml
CPT/HCPCS: 36415; 80048; 80053; 80143; 80179; 80305; 80307; 81025; 83605; 83690; 83735; 84443; 85025; 85610; 85730; 86140; 93005; 96365; 96366; 96367; 96375; 99285; A9270; J1808; J2405; J3411; J3475; J3480; J7120; J3490